=== PATIENT | male | born 1970 | race Caucasian/White ===

== ENCOUNTER 2023-08-11 16:02 | Observation (INO) ==
[2023-08-11 16:22] VITALS: BMI 34.0
--- NOTE | 2023-08-11 20:02 | DR.EXTPAIN ---
HPI Time seen Time Seen by Provider: 08/11/23 20:01 PCP Primary Care Physician: Donte Complaint/Symptoms Chief Complaint:: Patient states that his right foot has been swelling for about 4 weeks now. He also presents with an ulcer present on the bottom of his right foot near his 5th toe. He states that he is concerned of losing his right foot. He also states that his pain is interfering with his daily life. COVID-19 Coronavirus risk:travel/contact w/high risk person: No Has patient experienced Coronavirus symptoms: No Source History Provided: Patient Mode of arrival Mode of Arrival: Wheelchair Timing Onset of Chief Complaint: 07/21/23 PMH PMH Past Medical History: Yes Past Medical History: Anxiety, Arthritis, CHF, Diabetes, Hypertension and Sleep Apnea Past Surgical History: Yes Surgical History: Angioplasty/Stents and Other Past Surgical History Comment: Neck Family History History of Family Medical Conditions: Yes Family Medical History: Diabetes Mellitus Social History Does patient currently use any type of tobacco product: No Have you used tobacco products in the last 12 months: No Type of Tobacco Use: None Does any household member use tobacco: No Alcohol Use: None Do you use any recreational Drugs:: No Lives With: Family Lives Where: Home Travel Risk Coronavirus risk:travel/contact w/high risk person: No Has patient experienced Coronavirus symptoms: No Infectious screening In the last 2 months have you had wt loss of >10#?: NO Have you had fever, night sweats or hemotysis?: No Have you traveled outside the country in the last 6 months?: No Isolation: Standard PE Vital Signs Vitals: Vital Signs Temperature 99.1 F Pulse Rate 90 Respiratory Rate 18 Blood Pressure 118/75 O2 Sat by Pulse Oximetry 96 ROR Labs Reviewed 08/11/23 20:35 08/11/23 20:35 Laboratory: WBC 7.8 X10^3/uL (3.6-10.0) 08/11/23 20:35 RBC 4.66 X10^6/uL (4.7-6.0) L 08/11/23 20:35 Hgb 13.4 g/dL (13.5-18.0) L 08/11/23 20:35 Hct 39.9 % (42.0-54.0) L 08/11/23 20:35 MCV 85.7 fL (80.0-100.0) 08/11/23 20:35 MCH 28.8 pg (27.0-34.0) 08/11/23 20:35 MCHC 33.7 g/dL (33.0-35.0) 08/11/23 20:35 RDW 13.6 % (11.6-16.5) 08/11/23 20:35 Plt Count 150 X10^3/uL (150.0-450.0) 08/11/23 20:35 MPV 9.3 fL (7.4-11.0) 08/11/23 20:35 Neut % (Auto) 63.3 % (42.0-75.0) 08/11/23 20:35 Lymph % (Auto) 25.4 % (21.0-51.0) 08/11/23 20:35 [place] % (Auto) 9.9 % (0.0-13.0) 08/11/23 20:35 Eos % (Auto) 0.6 % (0.9-2.9) L 08/11/23 20:35 Baso % (Auto) 0.8 % (0.2-1.0) 08/11/23 20:35 Neut # (Auto) 4.9 x10^3/uL (2.2-4.8) H 08/11/23 20:35 Lymph # (Auto) 2.0 X10^3/uL (1.3-2.9) 08/11/23 20:35 [place] # (Auto) 0.8 x10^3/uL (0.3-0.8) 08/11/23 20:35 Eos # (Auto) 0.0 x10^3/uL (0.0-0.2) 08/11/23 20:35 Baso # (Auto) 0.1 X10^3/uL (0.0-0.1) 08/11/23 20:35 Absolute Nucleated RBC 0.1 /100WBC 08/11/23 20:35 Sodium 137 mmol/L (136-145) 08/11/23 20:35 Corrected Sodium 140 mmol/L (136-145) 08/11/23 20:35 Potassium 3.8 mmol/L (3.5-5.1) 08/11/23 20:35 Chloride 101 mmol/L (98-107) 08/11/23 20:35 Carbon Dioxide 25.4 mmol/L (21-32) 08/11/23 20:35 BUN 18 mg/dL (7-18) 08/11/23 20:35 Creatinine 0.85 mg/dL (0.70-1.30) 08/11/23 20:35 Est GFR (MDRD) Af Amer > 60 (>60) 08/11/23 20:35 Est GFR (MDRD) Non-Af > 60 (>60) 08/11/23 20:35 Glucose 214 mg/dL (65-99) H 08/11/23 20:35 Calcium 9.1 mg/dL (8.5-10.1) 08/11/23 20:35 Corrected Calcium TNP 08/11/23 20:35 Total Bilirubin 0.60 mg/dL (0.2-1.0) 08/11/23 20:35 AST 31 Units/L (15-37) 08/11/23 20:35 ALT 40 Units/L (12-78) 08/11/23 20:35 Alkaline Phosphatase 89 Units/L (46-116) 08/11/23 20:35 B-Natriuretic Peptide 26.4 pg/mL (0-79) 08/11/23 20:35 Total Protein 7.8 g/dL (6.4-8.2) 08/11/23 20:35 Albumin 4.1 g/dL (3.4-5.0) 08/11/23 20:35 Globulin 3.7 g/dL (2.5-4.5) 08/11/23 20:35 Albumin/Globulin Ratio 1.1 Ratio (1.1-2.1) 08/11/23 20:35 Specimen Type Clean catch urine 08/11/23 22:36 Urine Color Yellow (YELLOW) 08/11/23 22:36 Urine Appearance Clear (CLEAR) 08/11/23 22:36 Urine pH 5.0 (5.0 - 8.0) 08/11/23 22:36 Ur Specific [place] 1.025 (1.000-1.030) 08/11/23 22:36 Urine Protein Negative (NEGATIVE) 08/11/23 22:36 Urine Glucose (UA) 4+ (NEGATIVE) 08/11/23 22:36 Urine Ketones 1+ (NEGATIVE) 08/11/23 22:36 Urine Blood Negative (NEGATIVE) 08/11/23 22:36 Urine Nitrite Negative (NEGATIVE) 08/11/23 22:36 Urine Bilirubin Negative (NEGATIVE) 08/11/23 22:36 Urine Urobilinogen Normal (NORMAL) 08/11/23 22:36 Ur Leukocyte Esterase Negative (NEGATIVE) 08/11/23 22:36 Opioid Opioid Risk Tool Age (Arnie box if 16-45): No History of Preadolescent Sexual Abuse: No Total: 0 Total Score Risk Category: Low Risk Copyright: Isrrael HUGHES predicting aberrant behaviors Discharge Plan Discharge Plan Patient Disposition: 01 HOME, SELF-CARE Condition: Stable Orders to Discharge Patient Discharge Orders: Transfer (Routine); Ordered 08/11/23 Ordered By: JERRY CEE
[2023-08-11] MEDS: NS 1,000 ML IV 1,000 ML IV SCH (20:42)
[2023-08-11 20:44] LABS: BASOPHILS # (AUTO) 0.1 X10^3/uL (0.0-0.1); BASOPHILS % (AUTO) 0.8 % (0.2-1.0); EOSINOPHILS % (AUTO) 0.6 % (0.9-2.9); HEMATOCRIT 39.9 % (42.0-54.0); HEMOGLOBIN 13.4 g/dL (13.5-18.0); LYMPHOCYTES % (AUTO) 25.4 % (21.0-51.0); MEAN CORPUSCULAR HEMOGLOBIN 28.8 pg (27.0-34.0); MEAN CORPUSCULAR HGB CONC 33.7 g/dL (33.0-35.0); MEAN CORPUSCULAR VOLUME 85.7 fL (80.0-100.0); MEAN PLATELET VOLUME 9.3 fL (7.4-11.0); MONOCYTES # (AUTO) 0.8 x10^3/uL (0.3-0.8); MONOCYTES % (AUTO) 9.9 % (0.0-13.0); NEUTROPHILS # (AUTO) 4.9 x10^3/uL (2.2-4.8); NEUTROPHILS % (AUTO) 63.3 % (42.0-75.0); PLATELET COUNT 150 X10^3/uL (150.0-450.0); RED BLOOD COUNT 4.66 X10^6/uL (4.7-6.0); RED CELL DISTRIBUTION WIDTH 13.6 % (11.6-16.5); WHITE BLOOD COUNT 7.8 X10^3/uL (3.6-10.0)
[2023-08-11 20:57] LABS: ALANINE AMINOTRANSFERASE 40 Units/L (12-78); ALBUMIN 4.1 g/dL (3.4-5.0); ALKALINE PHOSPHATASE 89 Units/L (46-116); ASPARTATE AMINO TRANSFERASE 31 Units/L (15-37); BLOOD UREA NITROGEN 18 mg/dL (7-18); CALCIUM 9.1 mg/dL (8.5-10.1); CARBON DIOXIDE 25.4 mmol/L (21-32); CHLORIDE 101 mmol/L (98-107); COR NA(FOR HYPERGLY) 140 mmol/L (136-145); CREATININE 0.85 mg/dL (0.70-1.30); GLUCOSE 214 mg/dL (65-99); POTASSIUM 3.8 mmol/L (3.5-5.1); SODIUM 137 mmol/L (136-145); TOTAL PROTEIN 7.8 g/dL (6.4-8.2); eGFR NON BLACK RACES > 60 (>60)
[2023-08-11] MEDS: VANCOMYCIN IV *PREMIX 1 G/200 ML BAG 1 G/200 ML PIGGYBACK IV ONE ×2 (21:50→23:59)
--- NOTE | 2023-08-11 22:29 | CT ---
EXAM:LOWER EXT W/OHISTORY:RIGHT FOOT INFECTION AND SWELLING ; HTN, DM, SLEEP APNEA, CHF SX: ANGIO/STENTS, NECKCOMPARISON:None.TECHNIQUE:Non-contra st axial CT images of the right lower extremity/foot. Images were reformatted into coronal and sagittal planes for further evaluation.Radiation dose: 154.81 mGy-cm total DLPFINDINGS:Diffuse soft tissue edema.No soft tissue gas identified.No osseous erosions.No fracture or dislocation.Tendons appear grossly normal.IMPRESSION:Diffuse soft tissue edema could represent cellulitis. No overt imaging findings of osteomyelitis or gas gangrene.THIS IS AN ELECTRONICALLY VERIFIED FINAL REPORT08/11/2023 10:21 PM - Electronically signed by Gavino Healy MD
[2023-08-11 22:41] LABS: BILIRUBIN,URINE NEGATIVE (NEGATIVE); BLOOD/HEMOGLOBIN,URINE NEGATIVE (NEGATIVE); GLUCOSE, URINE 4+ (NEGATIVE); KETONES,URINE 1+ (NEGATIVE); LEUKOCYTE ESTERASE ,URINE NEGATIVE (NEGATIVE); NITRITES,URINE NEGATIVE (NEGATIVE); PROTEIN,URINE NEGATIVE (NEGATIVE); UROBILINOGEN,URINE NORMAL (NORMAL)
[2023-08-11 22:42] LABS: APPEARANCE,URINE CLEAR (CLEAR); COLOR,URINE YELLOW (YELLOW)
--- NOTE | 2023-08-11 22:56 | RAD ---
EXAM:FOOT, RIGHTHISTORY:INFECTED FOOT ULCER.;COMPARISON:None availableTECHNIQUE:Right foot radiographs, 3 views, AP, oblique and lateral projectionsFINDINGS:No fracture or dislocations.Normal joint spaces.Diffuse soft tissue edema. No soft tissue gas.IMPRESSION:Diffuse soft tissue edema is nonspecific but could represent cellulitis. No evidence of gas gangrene.THIS IS AN ELECTRONICALLY VERIFIED FINAL REPORT08/11/2023 10:53 PM - Electronically signed by Gavino Healy MD
[2023-08-11] MEDS ORDERED: ZOFRAN TAB 4 MG PO PRN (23:07)
[2023-08-12] MEDS ORDERED: MORPHINE SULFATE INJ 4 MG IVP PRN (00:23)
[2023-08-12] MEDS ORDERED: ZOFRAN INJ 4 MG VIAL IVP PRN (00:23)
[2023-08-12] MEDS: NovoLIN R (or HumuLIN R) SUBCUT PRN (05:27)
[2023-08-12 05:36] LABS: BASOPHILS % (AUTO) 0.3 % (0.2-1.0); EOSINOPHILS # (AUTO) 0.1 x10^3/uL (0.0-0.2); EOSINOPHILS % (AUTO) 1.2 % (0.9-2.9); HEMATOCRIT 36.6 % (42.0-54.0); HEMOGLOBIN 12.3 g/dL (13.5-18.0); LYMPHOCYTES % (AUTO) 31.9 % (21.0-51.0); MEAN CORPUSCULAR HEMOGLOBIN 28.9 pg (27.0-34.0); MEAN CORPUSCULAR HGB CONC 33.7 g/dL (33.0-35.0); MEAN CORPUSCULAR VOLUME 85.9 fL (80.0-100.0); MONOCYTES # (AUTO) 0.6 x10^3/uL (0.3-0.8); MONOCYTES % (AUTO) 10.1 % (0.0-13.0); NEUTROPHILS # (AUTO) 3.5 x10^3/uL (2.2-4.8); NEUTROPHILS % (AUTO) 56.5 % (42.0-75.0); PLATELET COUNT 146 X10^3/uL (150.0-450.0); RED BLOOD COUNT 4.27 X10^6/uL (4.7-6.0); RED CELL DISTRIBUTION WIDTH 13.5 % (11.6-16.5); WHITE BLOOD COUNT 6.2 X10^3/uL (3.6-10.0)
[2023-08-12 05:54] LABS: ALANINE AMINOTRANSFERASE 32 Units/L (12-78); ALBUMIN 3.4 g/dL (3.4-5.0); ALKALINE PHOSPHATASE 79 Units/L (46-116); ASPARTATE AMINO TRANSFERASE 29 Units/L (15-37); BLOOD UREA NITROGEN 17 mg/dL (7-18); CALCIUM 8.6 mg/dL (8.5-10.1); CARBON DIOXIDE 26.6 mmol/L (21-32); CHLORIDE 103 mmol/L (98-107); COR NA(FOR HYPERGLY) 141 mmol/L (136-145); CREATININE 0.78 mg/dL (0.70-1.30); GLUCOSE 241 mg/dL (65-99); POTASSIUM 3.6 mmol/L (3.5-5.1); SODIUM 138 mmol/L (136-145); TOTAL PROTEIN 6.7 g/dL (6.4-8.2); eGFR NON BLACK RACES > 60 (>60)
[2023-08-12] MEDS ORDERED: VANCOMYCIN IV *PREMIX 1.5 G/300 ML BAG 1.5 G/300 ML PIGGYBACK IV SCH (06:00)
[2023-08-12] MEDS ORDERED: CONSULT PHARMACY - POTASSIUM & MAGNESIUM XX SCH (07:00)
[2023-08-12] MEDS ORDERED: VANCOMYCIN IV *PREMIX 1 G/200 ML BAG 1 G/200 ML PIGGYBACK IV SCH (09:00)
[2023-08-12] MEDS ORDERED: ELIQUIS PO SCH (10:30)
[2023-08-12] MEDS ORDERED: BUSPAR PO SCH (11:00)
[2023-08-12] MEDS: VANCOMYCIN IV *PREMIX 1.5 G/300 ML BAG 1.5 G/300 ML PIGGYBACK IV SCH (11:00)
[2023-08-12] MEDS: FARXIGA PO SCH (11:30)
[2023-08-12] MEDS: ENTRESTO 49/51 MG TABLET PO SCH (11:31)
[2023-08-12] MEDS: PLAVIX PO SCH (11:31)
[2023-08-12] MEDS: ELIQUIS PO SCH (11:32)
[2023-08-12] MEDS: CORDARONE TAB 200 MG PO SCH (11:32)
[2023-08-12] MEDS: NORVASC TAB 5 MG PO SCH (11:33)
[2023-08-12] MEDS: COREG TAB 25 MG PO SCH (11:33)
--- NOTE | 2023-08-12 16:40 | DR.H&P ---
H&P History & Physical for Day of: H&P Date: 08/12/23 Chief Complaint Chief Complaint: Right foot swelling with ulcer on it. History of Present Illness History of Present Illness: This is a pleasant 53-year-old white male who pr esented to [facility] emergency department yesterday. He reports that his right foot has been swelling for the last 4 weeks and he also has an ulcer on the plantar side of his foot under his small toe when asked to it. The ulcer is linear in appearance and is probably 2 and a half centimeters in length and about a quarter of a centimeter in width. Patient is concerned that he could possibly lose his right foot. He also states that the pain is getting worse and interfering with his daily life. Patient is a type II diabetic and he also has chronic congestive heart failure. He sees continuing education dean, Dr. Ruiz for his cardiac needs. The patient reports that he has not had any fever and no foul odor or drainage from the right foot ulcer. Past Medical History Past Medical History: Anxiety, Arthritis, CHF, Diabetes, Hypertension and Sleep Apnea Past Surgical History Surgical History: Angioplasty/Stents and Ortho Surgery Family History Family Medical History: Diabetes Mellitus, Cancer and Heart Failure Social History Does patient currently use any type of tobacco product: No Have you used tobacco products in the last 12 months: No Type of Tobacco Use: None Does any household member use tobacco: No Alcohol Use: None Drug Use: None Medications Home Medications: Home Medications Medication Instructions Recorded Confirmed Type amiodarone 200 mg tablet 200 mg PO QDAY 10/15/22 08/11/23 History amlodipine 5 mg tablet 5 mg PO QDAY 10/15/22 08/11/23 History carvedilol 25 mg tablet 25 mg PO BID 10/15/22 08/11/23 History empagliflozin 25 mg tablet 12.5 mg PO QAM 10/15/22 08/11/23 History (Jardiance) sacubitril 97 mg-valsartan 103 mg 1 tab PO BID 10/15/22 08/11/23 History tablet (Entresto) spironolactone 25 mg tablet 25 mg PO QPM 10/15/22 08/11/23 History furosemide 40 mg tablet 40 mg PO 1XD 12/02/22 08/11/23 History buspirone 15 mg tablet 15 mg PO TID 08/11/23 08/11/23 History cholecalciferol (vitamin D3) 50 50 mcg PO QDAY 08/11/23 08/11/23 History mcg (2,000 unit) tablet quetiapine 200 mg tablet 200 mg PO QPM 08/11/23 08/11/23 History Allergies Allergies Allergy/AdvReac Type Severity Reaction Status Date / Time No Known Drug Allergies Allergy Unknown Verified 01/27/23 14:37 Labs 08/12/23 04:18 08/12/23 04:18 Labs: Laboratory WBC 6.2 X10^3/uL (3.6-10.0) 08/12/23 04:18 RBC 4.27 X10^6/uL (4.7-6.0) L 08/12/23 04:18 Hgb 12.3 g/dL (13.5-18.0) L 08/12/23 04:18 Hct 36.6 % (42.0-54.0) L 08/12/23 04:18 MCV 85.9 fL (80.0-100.0) 08/12/23 04:18 MCH 28.9 pg (27.0-34.0) 08/12/23 04:18 MCHC 33.7 g/dL (33.0-35.0) 08/12/23 04:18 RDW 13.5 % (11.6-16.5) 08/12/23 04:18 Plt Count 146 X10^3/uL (150.0-450.0) L 08/12/23 04:18 MPV 10.0 fL (7.4-11.0) 08/12/23 04:18 Neut % (Auto) 56.5 % (42.0-75.0) 08/12/23 04:18 Lymph % (Auto) 31.9 % (21.0-51.0) 08/12/23 04:18 [place] % (Auto) 10.1 % (0.0-13.0) 08/12/23 04:18 Eos % (Auto) 1.2 % (0.9-2.9) 08/12/23 04:18 Baso % (Auto) 0.3 % (0.2-1.0) 08/12/23 04:18 Neut # (Auto) 3.5 x10^3/uL (2.2-4.8) 08/12/23 04:18 Lymph # (Auto) 2.0 X10^3/uL (1.3-2.9) 08/12/23 04:18 [place] # (Auto) 0.6 x10^3/uL (0.3-0.8) 08/12/23 04:18 Eos # (Auto) 0.1 x10^3/uL (0.0-0.2) 08/12/23 04:18 Baso # (Auto) 0.0 X10^3/uL (0.0-0.1) 08/12/23 04:18 Absolute Nucleated RBC 0.1 /100WBC 08/12/23 04:18 Sodium 138 mmol/L (136-145) 08/12/23 04:18 Corrected Sodium 141 mmol/L (136-145) 08/12/23 04:18 Potassium 3.6 mmol/L (3.5-5.1) 08/12/23 04:18 Chloride 103 mmol/L (98-107) 08/12/23 04:18 Carbon Dioxide 26.6 mmol/L (21-32) 08/12/23 04:18 BUN 17 mg/dL (7-18) 08/12/23 04:18 Creatinine 0.78 mg/dL (0.70-1.30) 08/12/23 04:18 Est GFR (MDRD) Af Amer > 60 (>60) 08/12/23 04:18 Est GFR (MDRD) Non-Af > 60 (>60) 08/12/23 04:18 Glucose 241 mg/dL (65-99) H 08/12/23 04:18 POC Glucose (mg/dL) 243 mg/dL (65-99) H 08/12/23 16:24 Hemoglobin A1c 10.6 % 08/12/23 04:18 Calcium 8.6 mg/dL (8.5-10.1) 08/12/23 04:18 Corrected Calcium TNP 08/12/23 04:18 Magnesium 2.1 mg/dL (2.0-2.9) 08/12/23 04:18 Total Bilirubin 0.50 mg/dL (0.2-1.0) 08/12/23 04:18 AST 29 Units/L (15-37) 08/12/23 04:18 ALT 32 Units/L (12-78) 08/12/23 04:18 Alkaline Phosphatase 79 Units/L (46-116) 08/12/23 04:18 B-Natriuretic Peptide 26.4 pg/mL (0-79) 08/11/23 20:35 Total Protein 6.7 g/dL (6.4-8.2) 08/12/23 04:18 Albumin 3.4 g/dL (3.4-5.0) 08/12/23 04:18 Globulin 3.3 g/dL (2.5-4.5) 08/12/23 04:18 Albumin/Globulin Ratio 1.0 Ratio (1.1-2.1) L 08/12/23 04:18 Specimen Type Clean catch urine 08/11/23 22:36 Urine Color Yellow (YELLOW) 08/11/23 22:36 Urine Appearance Clear (CLEAR) 08/11/23 22:36 Urine pH 5.0 (5.0 - 8.0) 08/11/23 22:36 Ur Specific [place] 1.025 (1.000-1.030) 08/11/23 22:36 Urine Protein Negative (NEGATIVE) 08/11/23 22:36 Urine Glucose (UA) 4+ (NEGATIVE) 08/11/23 22:36 Urine Ketones 1+ (NEGATIVE) 08/11/23 22:36 Urine Blood Negative (NEGATIVE) 08/11/23 22:36 Urine Nitrite Negative (NEGATIVE) 08/11/23 22:36 Urine Bilirubin Negative (NEGATIVE) 08/11/23 22:36 Urine Urobilinogen Normal (NORMAL) 08/11/23 22:36 Ur Leukocyte Esterase Negative (NEGATIVE) 08/11/23 22:36 Review of Systems Constitutional: No Symptoms Reported Eyes: No Symptoms Reported ENT: No Symptoms Reported Respiratory: No Symptoms Reported Cardiovascular: No Symptoms Reported Gastrointestinal: No Symptoms Reported Genitourinary: No Symptoms Reported Musculoskeletal: Foot Pain (Right distal-plantar foot) Skin: Wound (Right distal lateral plantar foot.) and Other Neurological: No Symptoms Reported Physical Exam Vital Signs: Vital Signs Temperature 98.5 F Pulse Rate 75 Blood Pressure 148/86 O2 Sat by Pulse Oximetry 100 Oriented: Normal, Time, Person and Place Eyes: Normal Ear: Normal Nose: Normal Throat: Normal Respiratory: Clear Throughout Cardiovascular: Normal Auscultation: Bowel Sounds: Normal Palpation: Normal Tenderness: Normal Skin: Wound (Right distal plantar foot on right side) Musculoskeletal: Normal Psychiatric: Normal; negative Anxiety or Depression Mood Description: Calm; negative Depressed Affect: Normal Speech Pattern: Clear and Appropriate Assessment/Plan (1) Plantar ulcer of right foot: Status: Acute Plan: General surgery has been consulted and they have ordered a CT scan of the patient's right foot to see if there is any osteomyelitis present. The patient is currently receiving IV vancomycin. Blood cultures x 2 have been drawn and are pending. Wound culture has not been done at this time. (2) High blood pressure: Status: None Plan: Resume carvedilol 25 mg p.o. twice daily, amlodipine 5 mg daily, Entresto 97-103 mg 1 p.o. twice daily, spironolactone 25 mg daily and furosemide 40 mg p.o. daily. (3) Atrial fibrillation: Status: Acute Plan: Continue amiodarone and continue Eliquis at this time. (4) HLD (hyperlipidemia): Status: None Plan: I do not see where the patient is on a statin at this time. Cardiology is seeing the patient also. (5) Cardiomyopathy: Status: None Plan: Treatment per cardiology. (6) DM type 2 (diabetes mellitus, type 2): Qualifiers: Diabetes mellitus exterminator insulin use: without exterminator use Status: Acute Plan: The patient is currently covered with a slight scale regular insulin per protocol. I will go ahead and restart his empagliflozin 25 mg one half tab daily. Review H&P Reviewed: Yes Patient was examined?: Yes
[2023-08-12] MEDS: BUSPAR PO SCH (16:56)
[2023-08-12] MEDS: TYLENOL 325 MG TAB PO PRN (19:02)
[2023-08-12] MEDS: ALDACTONE TAB 25 MG PO SCH (21:31)
[2023-08-12] MEDS: SNACK - Diabetic Appropriate PO SCH (21:36)
[2023-08-13 05:53] LABS: BASOPHILS % (AUTO) 0.7 % (0.2-1.0); EOSINOPHILS # (AUTO) 0.1 x10^3/uL (0.0-0.2); EOSINOPHILS % (AUTO) 1.2 % (0.9-2.9); HEMATOCRIT 36.8 % (42.0-54.0); HEMOGLOBIN 12.3 g/dL (13.5-18.0); LYMPHOCYTES # (AUTO) 1.4 X10^3/uL (1.3-2.9); LYMPHOCYTES % (AUTO) 29.8 % (21.0-51.0); MEAN CORPUSCULAR HEMOGLOBIN 28.8 pg (27.0-34.0); MEAN CORPUSCULAR HGB CONC 33.4 g/dL (33.0-35.0); MEAN CORPUSCULAR VOLUME 86.1 fL (80.0-100.0); MEAN PLATELET VOLUME 9.6 fL (7.4-11.0); MONOCYTES # (AUTO) 0.5 x10^3/uL (0.3-0.8); MONOCYTES % (AUTO) 11.1 % (0.0-13.0); NEUTROPHILS # (AUTO) 2.7 x10^3/uL (2.2-4.8); NEUTROPHILS % (AUTO) 57.2 % (42.0-75.0); PLATELET COUNT 132 X10^3/uL (150.0-450.0); RED BLOOD COUNT 4.27 X10^6/uL (4.7-6.0); RED CELL DISTRIBUTION WIDTH 13.5 % (11.6-16.5); WHITE BLOOD COUNT 4.8 X10^3/uL (3.6-10.0)
[2023-08-13 06:08] LABS: ALANINE AMINOTRANSFERASE 40 Units/L (12-78); ALBUMIN 3.3 g/dL (3.4-5.0); ALKALINE PHOSPHATASE 83 Units/L (46-116); ASPARTATE AMINO TRANSFERASE 28 Units/L (15-37); BLOOD UREA NITROGEN 22 mg/dL (7-18); CALCIUM 8.7 mg/dL (8.5-10.1); CHLORIDE 107 mmol/L (98-107); COR CA(FOR HYPOALB) 9.3 mg/dL (8.5-10.1); COR NA(FOR HYPERGLY) 144 mmol/L (136-145); CREATININE 0.84 mg/dL (0.70-1.30); GLUCOSE 253 mg/dL (65-99); POTASSIUM 3.8 mmol/L (3.5-5.1); SODIUM 140 mmol/L (136-145); TOTAL PROTEIN 6.6 g/dL (6.4-8.2); eGFR NON BLACK RACES > 60 (>60)
[2023-08-13] MEDS: NS 250 ML IV 250 ML IV ONE (09:01)
[2023-08-13] MEDS: LASIX PO SCH (09:04)
[2023-08-13] MEDS: VITAMIN D3 125 mcg (5,000 UNITS) PO SCH (09:04)
[2023-08-13] MEDS ORDERED: NS IRRIGATION* 1,000 ML IR PRN (13:52)
[2023-08-13] MEDS: BACTROBAN TOPICAL OINT TOP SCH (15:00)
[2023-08-13] MEDS: HYDROGEN PEROXIDE 3% EXT SCH (15:00)
--- NOTE | 2023-08-13 16:28 | DR.PROGNOT ---
HOSPITAL PROGRESS NOTE Progress Note for Day of: Progress Note Date: 08/13/23 Chief Complaint Chief Complaint: No new complaint, CT of the right foot did not show any evidence of osteomyelitis, there is moderate soft tissue edema without gas formation, no fractures or abscess formation, Blood sugar 253 and the last A1c was 10.6. To continue local care of the foot ulcer with peroxide and saline, application of Bactroban twice a day and IV vancomycin awaiting final culture report. Past Medical Family Social History Allergies: Allergies No Known Drug Allergies Allergy (Unknown, Verified 01/27/23 14:37) Onset Date: 07/21/2019 Vital Signs Vital Signs: Vital Signs Temperature 97.9 F Temperature 98.3 F Temperature 98.3 F Pulse Rate 62 Respiratory Rate 18 Respiratory Rate 18 Blood Pressure 141/80 O2 Sat by Pulse Oximetry 98 Physical Exam Oriented: Normal, Time, Person and Place Eyes: Normal Ear: Normal Nose: Normal Throat: Normal Cardiovascular: Normal GI:Auscultation: Normal GI:Palpation: Normal GI: Tenderness: Normal Skin: Wound (Right distal plantar foot on right side 3 x 2 cm, no abscess formation, no necrosis.) Musculoskeletal: Normal Psychiatric: Normal; negative Anxiety or Depression Mood Description: Calm; negative Depressed Affect: Normal Speech Pattern: Clear and Appropriate Laboratory and Diagnostics 08/13/23 06:00 08/13/23 05:15 Labs: 08/11/23 20:35 Blood Blood Culture - Preliminary 08/11/23 20:25 Blood Blood Culture - Preliminary Laboratory WBC 4.8 X10^3/uL (3.6-10.0) 08/13/23 06:00 RBC 4.27 X10^6/uL (4.7-6.0) L 08/13/23 06:00 Hgb 12.3 g/dL (13.5-18.0) L 08/13/23 06:00 Hct 36.8 % (42.0-54.0) L 08/13/23 06:00 MCV 86.1 fL (80.0-100.0) 08/13/23 06:00 MCH 28.8 pg (27.0-34.0) 08/13/23 06:00 MCHC 33.4 g/dL (33.0-35.0) 08/13/23 06:00 RDW 13.5 % (11.6-16.5) 08/13/23 06:00 Plt Count 132 X10^3/uL (150.0-450.0) L 08/13/23 06:00 MPV 9.6 fL (7.4-11.0) 08/13/23 06:00 Neut % (Auto) 57.2 % (42.0-75.0) 08/13/23 06:00 Lymph % (Auto) 29.8 % (21.0-51.0) 08/13/23 06:00 [place] % (Auto) 11.1 % (0.0-13.0) 08/13/23 06:00 Eos % (Auto) 1.2 % (0.9-2.9) 08/13/23 06:00 Baso % (Auto) 0.7 % (0.2-1.0) 08/13/23 06:00 Neut # (Auto) 2.7 x10^3/uL (2.2-4.8) 08/13/23 06:00 Lymph # (Auto) 1.4 X10^3/uL (1.3-2.9) 08/13/23 06:00 [place] # (Auto) 0.5 x10^3/uL (0.3-0.8) 08/13/23 06:00 Eos # (Auto) 0.1 x10^3/uL (0.0-0.2) 08/13/23 06:00 Baso # (Auto) 0.0 X10^3/uL (0.0-0.1) 08/13/23 06:00 Absolute Nucleated RBC 0.1 /100WBC 08/13/23 06:00 ESR 9 MM/HOUR (0-15) 08/13/23 06:00 Sodium 140 mmol/L (136-145) 08/13/23 05:15 Corrected Sodium 144 mmol/L (136-145) 08/13/23 05:15 Potassium 3.8 mmol/L (3.5-5.1) 08/13/23 05:15 Chloride 107 mmol/L (98-107) 08/13/23 05:15 Carbon Dioxide 27.0 mmol/L (21-32) 08/13/23 05:15 BUN 22 mg/dL (7-18) H 08/13/23 05:15 Creatinine 0.84 mg/dL (0.70-1.30) 08/13/23 05:15 Est GFR (MDRD) Af Amer > 60 (>60) 08/13/23 05:15 Est GFR (MDRD) Non-Af > 60 (>60) 08/13/23 05:15 Glucose 253 mg/dL (65-99) H 08/13/23 05:15 POC Glucose (mg/dL) 295 mg/dL (65-99) H 08/13/23 16:18 POC Glucose (mg/dL) 300 mg/dL (65-99) H 08/13/23 16:18 Hemoglobin A1c 10.6 % 08/12/23 04:18 Calcium 8.7 mg/dL (8.5-10.1) 08/13/23 05:15 Corrected Calcium 9.3 mg/dL (8.5-10.1) 08/13/23 05:15 Magnesium 2.1 mg/dL (2.0-2.9) 08/12/23 04:18 Total Bilirubin 0.40 mg/dL (0.2-1.0) 08/13/23 05:15 AST 28 Units/L (15-37) 08/13/23 05:15 ALT 40 Units/L (12-78) 08/13/23 05:15 Alkaline Phosphatase 83 Units/L (46-116) 08/13/23 05:15 C-Reactive Protein 10.40 mg/L (0-3.0) H 08/13/23 06:00 B-Natriuretic Peptide 26.4 pg/mL (0-79) 08/11/23 20:35 Total Protein 6.6 g/dL (6.4-8.2) 08/13/23 05:15 Albumin 3.3 g/dL (3.4-5.0) L 08/13/23 05:15 Globulin 3.3 g/dL (2.5-4.5) 08/13/23 05:15 Albumin/Globulin Ratio 1.0 Ratio (1.1-2.1) L 08/13/23 05:15 Specimen Type Clean catch urine 08/11/23 22:36 Urine Color Yellow (YELLOW) 08/11/23 22:36 Urine Appearance Clear (CLEAR) 08/11/23 22:36 Urine pH 5.0 (5.0 - 8.0) 08/11/23 22:36 Ur Specific [place] 1.025 (1.000-1.030) 08/11/23 22:36 Urine Protein Negative (NEGATIVE) 08/11/23 22:36 Urine Glucose (UA) 4+ (NEGATIVE) 08/11/23 22:36 Urine Ketones 1+ (NEGATIVE) 08/11/23 22:36 Urine Blood Negative (NEGATIVE) 08/11/23 22:36 Urine Nitrite Negative (NEGATIVE) 08/11/23 22:36 Urine Bilirubin Negative (NEGATIVE) 08/11/23 22:36 Urine Urobilinogen Normal (NORMAL) 08/11/23 22:36 Ur Leukocyte Esterase Negative (NEGATIVE) 08/11/23 22:36 Assessment and Plan 1: diabetic foot ulcer RT lateral forefoot. Diabetic neuropathy. Small vessel disease. No need for surgery now. Same local care as mentioned above in addition to IV antibiotics, awaiting final culture report.
--- NOTE | 2023-08-13 16:50 | PCM.PROG ---
Progress Note Progress Note for Day of Date of Exam: 08/13/23 Subjective Subjective: This morning the patient is doing fairly well he states. He has had no acute problems overnight. His CRP is 10.4 which is slightly up from 10.1 yesterday. This morning he has no new complaints and the nurses tell me that we are currently awaiting approval of the CT scan of his foot with contrast. The insurance company seems to not we will approve it so I told the nurses just to order an MRI as we would probably be able to see any osteomyelitis with it this is the same as CT scan. I will follow up with the results of it. In the meantime, we will continue IV vancomycin, and general surgery will also continue to see the patient. Cardiology has been consulted as the patient does have chronic congestive heart failure, and Dr. Ruiz is monitoring this. We will continue to follow daily ESR and CRP levels. Past Medical Family Social History Allergies: Allergies No Known Drug Allergies Allergy (Unknown, Verified 01/27/23 14:37) Onset Date: 07/21/2019 Vital Signs and I&O's Vital Signs: Vital Signs Temperature 97.9 F Temperature 98.3 F Pulse Rate 61 Pulse Rate 62 Respiratory Rate 19 Respiratory Rate 18 Respiratory Rate 18 Blood Pressure 130/75 Blood Pressure 141/80 O2 Sat by Pulse Oximetry 97 O2 Sat by Pulse Oximetry 98 Intake and Output: Intake & Output 08/11/23 08/12/23 08/13/23 08/14/23 11:59 11:59 11:59 11:59 Intake Total 865 / 865 350 / 350 Output Total 1700 / 1700 Balance -835 / -835 350 / 350 Physical Exam Oriented: Normal, Time, Person and Place Eyes: Normal Ear: Normal Nose: Normal Throat: Normal Respiratory: Normal Cardiovascular: Normal Auscultation: Bowel Sounds: Normal Tenderness: Normal Skin: Wound (Right distal plantar foot on right side 3 x 2 cm, no abscess formation, no necrosis.) Musculoskeletal: Normal Psychiatric: Normal; negative Anxiety or Depression Mood Description: Calm; negative Depressed Affect: Normal Speech Pattern: Clear and Appropriate Laboratory and Diagnostics 08/13/23 06:00 08/13/23 05:15 Labs: 08/11/23 20:35 Blood Blood Culture - Preliminary 08/11/23 20:25 Blood Blood Culture - Preliminary Laboratory WBC 4.8 X10^3/uL (3.6-10.0) 08/13/23 06:00 RBC 4.27 X10^6/uL (4.7-6.0) L 08/13/23 06:00 Hgb 12.3 g/dL (13.5-18.0) L 08/13/23 06:00 Hct 36.8 % (42.0-54.0) L 08/13/23 06:00 MCV 86.1 fL (80.0-100.0) 08/13/23 06:00 MCH 28.8 pg (27.0-34.0) 08/13/23 06:00 MCHC 33.4 g/dL (33.0-35.0) 08/13/23 06:00 RDW 13.5 % (11.6-16.5) 08/13/23 06:00 Plt Count 132 X10^3/uL (150.0-450.0) L 08/13/23 06:00 MPV 9.6 fL (7.4-11.0) 08/13/23 06:00 Neut % (Auto) 57.2 % (42.0-75.0) 08/13/23 06:00 Lymph % (Auto) 29.8 % (21.0-51.0) 08/13/23 06:00 [place] % (Auto) 11.1 % (0.0-13.0) 08/13/23 06:00 Eos % (Auto) 1.2 % (0.9-2.9) 08/13/23 06:00 Baso % (Auto) 0.7 % (0.2-1.0) 08/13/23 06:00 Neut # (Auto) 2.7 x10^3/uL (2.2-4.8) 08/13/23 06:00 Lymph # (Auto) 1.4 X10^3/uL (1.3-2.9) 08/13/23 06:00 [place] # (Auto) 0.5 x10^3/uL (0.3-0.8) 08/13/23 06:00 Eos # (Auto) 0.1 x10^3/uL (0.0-0.2) 08/13/23 06:00 Baso # (Auto) 0.0 X10^3/uL (0.0-0.1) 08/13/23 06:00 Absolute Nucleated RBC 0.1 /100WBC 08/13/23 06:00 ESR 9 MM/HOUR (0-15) 08/13/23 06:00 Sodium 140 mmol/L (136-145) 08/13/23 05:15 Corrected Sodium 144 mmol/L (136-145) 08/13/23 05:15 Potassium 3.8 mmol/L (3.5-5.1) 08/13/23 05:15 Chloride 107 mmol/L (98-107) 08/13/23 05:15 Carbon Dioxide 27.0 mmol/L (21-32) 08/13/23 05:15 BUN 22 mg/dL (7-18) H 08/13/23 05:15 Creatinine 0.84 mg/dL (0.70-1.30) 08/13/23 05:15 Est GFR (MDRD) Af Amer > 60 (>60) 08/13/23 05:15 Est GFR (MDRD) Non-Af > 60 (>60) 08/13/23 05:15 Glucose 253 mg/dL (65-99) H 08/13/23 05:15 POC Glucose (mg/dL) 295 mg/dL (65-99) H 08/13/23 16:18 POC Glucose (mg/dL) 300 mg/dL (65-99) H 08/13/23 16:18 Hemoglobin A1c 10.6 % 08/12/23 04:18 Calcium 8.7 mg/dL (8.5-10.1) 08/13/23 05:15 Corrected Calcium 9.3 mg/dL (8.5-10.1) 08/13/23 05:15 Magnesium 2.1 mg/dL (2.0-2.9) 08/12/23 04:18 Total Bilirubin 0.40 mg/dL (0.2-1.0) 08/13/23 05:15 AST 28 Units/L (15-37) 08/13/23 05:15 ALT 40 Units/L (12-78) 08/13/23 05:15 Alkaline Phosphatase 83 Units/L (46-116) 08/13/23 05:15 C-Reactive Protein 10.40 mg/L (0-3.0) H 08/13/23 06:00 B-Natriuretic Peptide 26.4 pg/mL (0-79) 08/11/23 20:35 Total Protein 6.6 g/dL (6.4-8.2) 08/13/23 05:15 Albumin 3.3 g/dL (3.4-5.0) L 08/13/23 05:15 Globulin 3.3 g/dL (2.5-4.5) 08/13/23 05:15 Albumin/Globulin Ratio 1.0 Ratio (1.1-2.1) L 08/13/23 05:15 Specimen Type Clean catch urine 08/11/23 22:36 Urine Color Yellow (YELLOW) 08/11/23 22:36 Urine Appearance Clear (CLEAR) 08/11/23 22:36 Urine pH 5.0 (5.0 - 8.0) 08/11/23 22:36 Ur Specific [place] 1.025 (1.000-1.030) 08/11/23 22:36 Urine Protein Negative (NEGATIVE) 08/11/23 22:36 Urine Glucose (UA) 4+ (NEGATIVE) 08/11/23 22:36 Urine Ketones 1+ (NEGATIVE) 08/11/23 22:36 Urine Blood Negative (NEGATIVE) 08/11/23 22:36 Urine Nitrite Negative (NEGATIVE) 08/11/23 22:36 Urine Bilirubin Negative (NEGATIVE) 08/11/23 22:36 Urine Urobilinogen Normal (NORMAL) 08/11/23 22:36 Ur Leukocyte Esterase Negative (NEGATIVE) 08/11/23 22:36 Plan (1) Plantar ulcer of right foot: Status: Acute Plan: General surgery has been consulted and they have ordered a CT scan of the patient's right foot to see if there is any osteomyelitis present. The patient is currently receiving IV vancomycin. Blood cultures x 2 have been drawn and are pending. Wound culture has not been done at this time. (2) High blood pressure: Status: None Plan: Resume carvedilol 25 mg p.o. twice daily, amlodipine 5 mg daily, Entresto 97-103 mg 1 p.o. twice daily, spironolactone 25 mg daily and furosemide 40 mg p.o. daily. (3) Atrial fibrillation: Status: Acute Plan: Continue amiodarone and continue Eliquis at this time. (4) HLD (hyperlipidemia): Status: None Plan: I do not see where the patient is on a statin at this time. Cardiology is seeing the patient also. (5) Cardiomyopathy: Status: None Plan: Treatment per cardiology. (6) DM type 2 (diabetes mellitus, type 2): Status: Acute Qualifiers: Diabetes mellitus salvage determiner insulin use: without assisted use Plan: The patient is currently covered with a slight scale regular insulin per protocol. I will go ahead and restart his empagliflozin 25 mg one half tab daily.
[2023-08-13] MEDS: MULTIHANCE INJ VIAL ONE (19:32)
[2023-08-13] MEDS: K-DUR TAB 20 MEQ PO SCH (19:33)
[2023-08-13] MEDS: PHARMACY COMMENT IV NR (19:35)
[2023-08-13 20:47] LABS: CREATININE 1.16 mg/dL (0.70-1.30); VANCOMYCIN,TROUGH 19.7 ug/mL (15-20)
[2023-08-13] MEDS: VANCOMYCIN IV *PREMIX 1.25 G/250 ML BAG 1.25 G/250 ML PIGGYBACK IV SCH (21:40)
[2023-08-14] VITALS: PULSE 64; O2SAT 98
[2023-08-14 05:21] VITALS: BP 112/68; RESP 18
[2023-08-14 09:09] VITALS: TEMP 98.1
--- NOTE | 2023-08-14 12:02 | MRI ---
EXAM:EXT LOWER JOINT W/O CONHISTORY:R/O OSTEOMYLITIS/EXAM WAS ORIGINALLY ORDERED W/WO BUT THE PATIENT WAS HURTING TOO BAD AND HAD TO GET OFF TABLE BEFORE CONTRAST SERIES COULD BE PERFORMED ;COMPARISON:None.TECHNIQUE:Multiplanar noncontrast MR images of the right foot using multiple imaging sequences. By report the patient declined the use of intravenous contrast.FINDINGS:Generally the visualized osseous structures demonstrate normal marrow signal on all imaging sequences. No evidence of acute bone marrow edema. There is generalized soft tissue swelling/subcutaneous edema about the dorsal aspect of the foot and about the ankle. Details of the soft tissues for potential acute inflammation/infection are limited since intravenous contrast was not used. There is no obvious focal abscess collection.IMPRESSION:Soft tissue swelling about the foot.THIS IS AN ELECTRONICALLY VERIFIED FINAL REPORT08/14/2023 10:48 AM - Electronically signed by Camilla Payan MD
== END 2023-08-14 13:40 | disposition home or self-care (01) ==
LOC: ICU 16:02 → ER 16:02 → ICU 08-12 00:10
PROVIDERS: ADMIT Family Medicine; ATTEND Family Medicine
DX: M79.671 Pain in right foot; E11.65 Type 2 diabetes mellitus with hyperglycemia; I50.9 Heart failure, unspecified; L97.418 Non-pressure chronic ulcer of right heel and midfoot with other specified severity; E11.621 Type 2 diabetes mellitus with foot ulcer; M79.89 Other specified soft tissue disorders; Z65.8 Other specified problems related to psychosocial circumstances; I48.91 Unspecified atrial fibrillation; R94.31 Abnormal electrocardiogram [ECG] [EKG]; I42.9 Cardiomyopathy, unspecified; I11.0 Hypertensive heart disease with heart failure; F41.8 Other specified anxiety disorders; E78.5 Hyperlipidemia, unspecified